=== PATIENT | male | born 1960 | race Caucasian/White ===

== ENCOUNTER 2018-06-07 07:04 | Outpatient (CLI) | payer OTHER ==
[~2018-06-07] VITALS: Ht 188 cm; Wt 138.2 kg
--- NOTE | ~2018-06-07 | OP ---
PATIENT NAME: LARRY GODFREY MEDICAL RECORD: [id number] :[birth year] LOCATION:D.CAT ADMISSION DATE: SURGEON: JUDY GUERRERO MD DATE OF OPERATION: 06/07/2018 PROCEDURES: 1. PTCA and stent of RCA. 2. PTCA and stent of LAD. 3. Left heart catheterization. 4. Selective coronary angiography. INDICATION: Angina and coronary artery disease. PROCEDURE IN DETAIL: After informed consent was obtained and after a detailed explanation of the risks, benefits as well as alternative therapies, the patient elected to proceed with angiogram and angioplasty. The right femoral area was prepped and draped in normal sterile fashion. Right femoral artery was cannulated via modified Seldinger technique with placement of 6-Latvian sheath. All catheters exchanged through this sheath. FINDINGS: Left ventriculogram was performed in standard 30-degree SANCHEZ view, reveals global hypokinesis throughout all segments. Overall ejection fraction 40%. SELECTIVE CORONARY ANGIOGRAPHY: 1. Left main is with no significant angiographic disease. 2. Left anterior descending has a long area of 80% to 95% stenosis in the mid vessel. 3. Left circumflex has mild irregularities, but no flow-limiting stenosis. 4. Right coronary has a 90% stenosis in the mid distal vessel. PTCA AND STENT OF THE RCA: The stent used was a 3.5 x 18-mm Alphonso. The result was 0% residual stenosis. PTCA AND STENT OF THE LAD: The stent used was a 2.25 x 38-mm [place]. The result was 0% residual stenosis. OVERALL IMPRESSION: Successful PTCA and stent of the LAD and RCA, both going from 90% to 95% initial stenosis to 0% residual. TRANSINT:[id number] Voice Confirmation ID: [id number] DOCUMENT ID: [id number] JUDY GUERRERO MD CC: [id number] DICTATION DATE: 06/07/18 1011 PIECER: 06/07/18 1055 REG [facility] [address] [place] [address]
--- NOTE | ~2018-06-07 | HEMODYNAMI ---
PATIENT:LARRY GODFREY MEDICAL RECORD: [id number] : 64 LOCATION:D.JUDAH ADMISSION DATE: 06/07/18 Generatedon:06/07/201810:04 Patient name: LARRY GODFREY Patient #: [id number] SSN: : 1960 Date of study: 06/07/2018 Page: Of Hemodynamic Procedure Report Patient Data Patient Demographics Procedure consent was obtained First Name: LARRY Gender: Male Last Name: EPIFANIO : 1960 Patient #: [id number] Age: 58 year(s) Race: Unknown Additional ID: [id number] Contact details Address: [address] [place] [address] State: [place] City: [place] Zip code: [address] Past Medical History Allergies Allergen Reaction Date Comments Reported Other allergy 06/07/2018 NAPROXEN, ROLAIDS Admission Admission Data Admission Date: 06/07/2018 Admission Time: 7:04 Lab Results Lab Result Date: 06/07/2018 Lab Result Time: 0:00 Biochemistry Name Units Result Min Max BUN mg/dl 29 --(----)-* 7 18 Creatinine mg/dl 1.4 --(----)*- 0.6 1.3 CBC Name Units Result Min Max Hemoglobin g/dl 14.7 --(-*--)-- 13.5 17.5 Procedure Procedure Types Cath Procedure Diagnostic Procedure LHC [facility] w/Coronaries Sedation Charges Moderate Sedation up to 15 minutes PCI Procedure Coronary Stent Coronary Stent Initial x2 Procedure Description Procedure Date Procedure Date: 06/07/2018 Procedure Start Time: 9:42 Procedure End Time: 10:04 Procedure Staff Name Function Dariusz Ortez MD Performing Physician Donnell Waite RT Scrub Yu Flores RN Nurse Mary Andrea RT Monitor Procedure Data Cath Procedure Fluoroscopy Diagnostic fluoroscopy Total fluoroscopy Time: 4.2 time: 4.2 min min Diagnostic fluoroscopy Total fluoroscopy dose: dose: 1176 mGy 1176 mGy Contrast Material Contrast Material Type Amount (ml) Isovue 300 138 Entry Location Entry Primary Successful Side Size Upsize Upsize Entry Closure Succes sful Closure Location (Fr) 1 (Fr) 2 (Fr) Remarks Device Remarks Femoral Right 5 Fr 7 Fr Exoseal artery Short Estimated blood loss: 10 ml Diagnostic catheters Device Type Used For End Catheter Placement MULTIPACK Pigtail 5 Fr Procedure catheter MULTIPACK JL 4.0 5Fr Procedure catheter MULTIPACK 3DRC 5Fr Procedure catheter Procedure Complications No complications Procedure Medications Medication Administration Route Dosage 0.9% NaCl I.V. 100 ml/hr Oxygen etCO2 Nasal cannula 2 l/min Lidocaine 2% added to field 20 Heparin Flush Bag added to field 2 bags (1000units/500ml NS) Versed I.V. 2 mg Fentanyl I.V. 50 mcg Heparin Bolus I.V. 4000 units Integrilin (Bolus I.V. 11.3 ml 2mg/ml) Plavix P.O. 600 mg Versed I.V. 2 mg Fentanyl I.V. 50 mcg Hemodynamics Rest HGB: 14.7 (g/dl) Heart Rate: 60 (bpm) Snapshots Pre Cath Intra NCS Post Cath Vital Signs Time Heart Resp SPO2 etCO2 NIBP (mmHg) Rhythm Pain Sedation Rate (ipm) (%) (mmHg) Status Level (bpm) 9:22:32 58 16 98 43.1 172/93(145) NSR 0 (11) 10(A) , No pain 9:27:08 59 14 99 32 177/100(148) NSR 0 (11) 10(A) , No pain 9:31:36 57 13 100 33.6 162/89(118) NSR 0 (11) 10(A) , No pain 9:36:11 58 13 98 20.8 144/74(120) NSR 0 (11) 10(A) , No pain 9:41:28 59 14 98 40.9 141/80(106) NSR 0 (11) 10(A) , No pain 9:45:52 59 13 97 38.7 144/82(102) NSR 0 (11) 10(A) , No pain 9:50:17 62 13 98 43.9 139/73(115) NSR 0 (11) 9(A) , No pain 9:54:49 62 12 97 40.2 143/66(122) NSR 0 (11) 9(A) , No pain 9:59:14 65 14 98 40.2 146/88(120) NSR 0 (11) 10(A) , No pain Medications Time Medication Route Dose Verified Delivered Reason Notes Effectiveness by by 9:17:39 0.9% NaCl I.V. 100 Dariusz Yu used for ml/hr Neelima Flores clerical production worker 9:17:47 Oxygen etCO2 2 Dariusz Yu used for Nasal l/min Neelima Flores procedure cannula RN 9:17:53 Lidocaine 2% added 20ml Dariusz Dariusz for local to vial Neelima Ortez MD anesthetic field 9:17:58 Heparin Flush added 2 Dariusz Dariusz used for Bag to bags Neelima Ortez MD procedure (1000units/500ml field NS) 9:40:59 Versed I.V. 2 mg Dariusz Yu for sedation Neelima Flores RN 9:41:05 Fentanyl I.V. 50 Dariusz Yu for sedation mcg Neelima Flores RN 9:46:48 Versed I.V. 2 mg Dariusz Yu for sedation Neelima Flores RN 9:46:52 Fentanyl I.V. 50 Dariusz Yu for sedation mcg Neelima Flores RN 9:47:58 Heparin Bolus I.V. 4000 Dariusz Yu for verifi ed units Neelima Flores anticoagulation with Dr. MIGUELITO Ortez 9:49:19 Integrilin I.V. 11.3 Dariusz Yu for wasted (Bolus 2mg/ml) ml Neelima Flores anticoagulation 8.7mL RN 9:49:40 Plavix P.O. 600 Dariusz Yu for sedation mg Neelima Flores field service technician Log Time Note 9:05:04 Signed procedure consent form obtained from patient. 9:05:05 Diagnostic Cath status Elective 9:05:07 Time tracking: Regular hours (M-F 7:00 - 5:00) 9:05:11 Plan of Care:Hemodynamics will remain stable., Cardiac rhythm will remain stable., Comfort level will be maintained., Respiratory function will remain adequate., Patient/ family verbilizes understanding of procedure., Procedure tolerated without complication., Recovers from procedure without complications.. 9:05:19 H&P Date Dictated: 05/07/2018 Within 30 days and on chart., H&P Addendum completed by physician on day of procedure. (MUST COMPLETE FOR ALL OUTPATIENTS). 9:05:41 Patient allergic to Other allergyNAPROXEN, ROLAIDS 9:12:57 Patient received from Pre/Post Procedure Room to CCL 1 Alert and oriented. Tansferred to table in Supine position. 9:13:00 Warm blankets applied, and kirill hugger turned on for patient comfort. 9:13:01 Correct patient and procedure confirmed by team. 9:17:39 0.9% NaCl 100 ml/hr I.V. was administered by Yu Flores RN; used for procedure; 9:17:47 Oxygen 2 l/min etCO2 Nasal cannula was administered by Yu Flores RN; used for procedure; 9:17:53 Lidocaine 2% 20ml vial added to field was administered by Dariusz Ortez MD; for local anesthetic; 9:17:58 Heparin Flush Bag (1000units/500ml NS) 2 bags added to field was administered by Dariusz Ortez MD; used for procedure; 9:21:07 Vital chart was started 9:25:36 Baseline sample Acquired. 9:25:37 Baseline sample Acquired. 9:25:43 Rhythm: sinus rhythm 9:25:45 Pre-procedure instructions explained to patient. 9:25:46 Pre-op teaching completed and patient verbalized understanding. 9:25:58 Family in waiting room. 9:26:02 Patient NPO since Midnight. 9:26:06 Is the patient allergic to Iodine/contrast media? No. 9:26:34 Is patient on blood thinner?No 9:26:36 Patient diabetic? Yes. 9:26:38 If diabetic: On Metformin? Yes 9:26:53 If on Metformin: Last Dose? 06/03/2019 9:26:57 ----Pre-sedation anethsthesia assessment.---- 9:27:00 Previous problem with sedation/anesthesia? No ? 9:27:02 Snore? Yes 9:27:04 Sleep apnea? No 9:27:05 Deviated septum? No 9:27:07 Opens mouth fully? Yes 9:27:08 Sticks out tongue? Yes 9:27:13 Airway obstruction? No ? 9:27:24 Dentures? Yes IN TIGHT 9:27:37 Pre procedure: right dorsailis pedis pulse 1+ Palpable, but thready & weak; easily obliterated 9:27:54 Patient pain scale 0/10 ?. 9:28:05 IV patent on arrival in left antecubital with 0.9% NaCl at [facility]. 9:28:29 Right groin area was prepped with chlora-prep and draped in sterile fashion 9:28:32 Alarms reviewed by R. N. 9:28:33 Sharps counted by scrub and verified by R.N. 9::35 Zero performed for pressure channel P1 9:28:39 Zero performed for pressure channel P1 9:32:02 Zero performed for pressure channel P1 9:35:17 Lab Result : BUN 29 mg/dl 9:35:17 Lab Result : Hemoglobin 14.7 g/dl 9:35:17 Lab Result : Creatinine 1.4 mg/dl 9:36:19 Baseline sample Acquired. 9:36:28 Full Disclosure recording started 9:36:41 Use device set Femoral Dx 9:36:42 ACIST Syringe (54056) opened to sterile field. 9:36:42 Bag Decanter (2002S) opened to sterile field. 9:36:43 Medline Cath Pack ([id number]) opened to sterile field. 9:36:43 DIAGNOSTIC WIRE .035 260cm J wire (109924) opened to sterile field. 9:36:45 ACIST Hand Control (15689) opened to sterile field. 9:36:45 ACIST Manifold (17689) opened to sterile field. 9:36:47 DIAGNOSTIC Multipack 5Fr catheter set (TA3080) opened to sterile field. 9:36:49 Tegaderm 4 x 4 (1626W) opened to sterile field. 9:36:51 SHEATH 5FR Albia (IIA105) opened to sterile field. 9:40:25 Physician arrived 9:40:25 --------ALL STOP TIME OUT------ 9:40:26 Final Timeout: patient, procedure, and site verified with staff and physician. All members of the team are in agreement. 9:40:28 Right groin site verified by team. 9:40:32 Physical assessment completed. ASA score P 2 - A patient with mild systemic disease as per Dariusz Ortez MD. 9:40:36 Sedation plan: IV Moderate Sedation Medication:Versed, Fentanyl 9:40:59 Versed 2 mg I.V. was administered by Yu Flores RN; for sedation; 9:41:05 Fentanyl 50 mcg I.V. was administered by Yu Flores RN; for sedation; 9:42:16 Procedure started. 9:42:26 Local anesthetic to right femoral artery with Lidocaine 2% by Dariusz Ortez MD.INITIAL ACCESS ONLY 9:42:39 A 5 Fr sheath was inserted into the Right Femoral artery 9:43:33 A MULTIPACK Pigtail 5 Fr catheter was advanced over the wire and used for Procedure. 9:43:37 LV gram done using SANCHEZ 9:44:24 EF : 40 % 9:44:32 Catheter removed. 9:44:44 A MULTIPACK JL 4.0 5Fr catheter was advanced over the wire and used for Procedure. 9:44:47 LCA angiography performed. 9:45:23 Catheter removed. 9:45:32 A MULTIPACK 3DRC 5Fr catheter was advanced over the wire and used for Procedure. 9:46:02 CHOICE PT Extra Support 182cm wire ([id number]) opened to sterile field. 9:46:02 SHEATH 6FR Albia (DSD902) opened to sterile field. 9:46:03 INFLATOR Merit BasixCompak (VD1370) opened to sterile field. 9:46:09 RCA angiography performed. 9:46:36 Catheter removed. 9:46:45 SHEATH 7FR Albia (UIZ863) opened to sterile field. 9:46:48 Versed 2 mg I.V. was administered by Yu Flores RN; for sedation; 9:46:52 Fentanyl 50 mcg I.V. was administered by Yu Flores RN; for sedation; 9:47:58 Heparin Bolus 4000 units I.V. was administered by Yu Flores RN; for anticoagulation; verified with Dr. Ortez 9:49:18 Sheath upsized to a 7 Fr Short. 9:49:19 Integrilin (Bolus 2mg/ml) 11.3 ml I.V. was administered by Yu Flores RN; for anticoagulation; wasted 8.7mL 9:49:23 Proceeding to intervention. 9:49:31 7 Fr AR2 guide catheter was inserted over the wire 9:49:38 choice pt ex wire advanced. 9:49:40 Plavix 600 mg P.O. was administered by Yu Flores RN; for sedation; 9:49:40 Wire advanced across lesion. 9:52:23 Wire removed. 9:52:28 Stent catheter was removed intact over wire. 9:52:42 CHOICE PT Floppy Straight 300cm guide wire ([id number]) opened to sterile field. 9:52:49 Wire advanced across lesion. 9:53:57 Place stent Inflation Number: 1 A KAROLINA RX 3.5 x 18 stent ([id number]) was prepped and advanced across the Dist RCA. The stent was deployed at 11 SANDIE for 0:11 (min:sec). 9:54:48 GUIDE 7FR AR 2.0 catheter ([id number]) opened to sterile field. 9:55:10 6 Fr XBLAD 4 guide catheter was inserted over the wire 9:55:22 GUIDE 6FR XBLAD 4.0 catheter ([id number]) opened to sterile field. 9:55:47 choice floppy wire advanced. 9:56:34 Wire advanced across lesion. 9:58:36 Place stent Inflation Number: 1 A KAROLINA RX 2.25 x 38 stent ([id number]) was prepped and advanced across the Mid LAD. The stent was deployed at 15 SANDIE for 0:14 (min:sec). 9:58:49 EXOSEAL 7Fr (EX700) opened to sterile field. 10:01:01 Stent catheter was removed intact over wire. 10:01:02 Wire removed. 10:01:03 Guide catheter removed. 10:01:13 Sheath removed intact; hemostasis achieved with Exoseal to the Right Femoral artery. 10:01:15 Procedure ended.(Physican Out) 10:02:27 Fluoroscopy time 04.20 minutes. 10:02:32 Fluoroscopy dose: 1176 mGy 10:02:32 Flurop Dose total: 1176 10:02:37 Contrast amount:Isovue 300 138ml. 10:02:40 Sharps counted by scrub and verified by R.N. 10:02:41 Insertion/operative site no bleeding no hematoma. 10:02:48 Post-procedure physical assessment completed. ASA score P 2 - A patient with mild systemic disease as per Dariusz Ortez MD. 10:02:51 Post procedure rhythm: unchanged. 10:03:01 Estimated blood loss: 10 ml 10:03:03 Post procedure instruction explained to patient.Patient verbalizes understanding. 10:03:33 Procedure type changed to Cath procedure, Diagnostic procedure, LHC, LHC w/Coronaries, Sedation Charges, Moderate Sedation up to 15 minutes, PCI procedure, Coronary Stent, Coronary Stent Initial x2 10:03:34 Procedure and supply charges have been captured, reviewed, submitted and are correct. 10:04:07 Procedure Complication : No complications 10:04:12 Vital chart was stopped 10:04:12 See physician's report for complete and final results. 10:04:14 Report given to Pre/Post Procedure Room. 10:04:18 Patient transfered to Pre/Post Procedure Room with Stretcher. 10:04:20 Procedure ended. 10:04:20 Full Disclosure recording stopped 10:04:23 End room use (Document Last) 10:04:28 ACC-PCI Only Patient was given prescriptions, or instructed by Dariusz Ortez MD to start/continue the following medications upon discharge: Plavix Intervention Summary Intervention Notes Time ActionType Lesion and Equipment Used Action# Pressure Duration Attributes 9:53:57 Place stent Dist RCA KAROLINA RX 3.5 x 1 11 00:11 18 stent ([id number]) 9:58:36 Place stent Mid LAD KAROLINA RX 2.25 x 1 15 00:14 38 stent ([id number]) Device Usage Item Name Manufacture Quantity Catalog Number Hospital Part Current M inimal Lot# / Charge Number Stock Stock Serial# Code ACIST Syringe Acist 1 76911 286356 576247 003807 2 0 (37416) Medical Systems Inc Bag Decanter Microtek 1 713471 29650 368056 5 () Medical Inc. Medline Cath Medline 1 [id number] 973993 07336 876176 5 Pack ([id number]) DIAGNOSTIC St Anant 1 781013 057413 305987 315863 3 0 WIRE .035 260cm J wire (559772) ACIST Hand Acist 1 62289 438325 539137 575520 5 Control Medical (13606) Systems Inc ACIST Manifold Acist 1 55586 051461 426931 439733 5 (97656) Medical Systems Inc DIAGNOSTIC Cardinal 1 RA1310 877101 88216 276782 3 0 Multipack 5Fr Health catheter set (UT7445) Tegaderm 4 x 4 3M 1 1626W 127270 746706 772114 5 (1626W) SHEATH 5FR Terumo 1 FJC719 465018 125504 398998 5 Albia (DQX745) MULTIPACK Cardinal 1 047058 5 Pigtail 5 Fr Health catheter MULTIPACK JL Cardinal 1 337265 5 4.0 5Fr Health catheter MULTIPACK 3DRC Cardinal 1 154414 5 5Fr catheter Health CHOICE PT Dunellen 1 [id number] 269715 161806 909574 5 Extra Support Scientific 182cm wire ([id number]) SHEATH 6FR Terumo 1 QCC075 589535 700674 577978 4 0 Albia (BAN421) INFLATOR Merit Merit 1 HA1346 051153 782302 387426 1 5 Kigo Medical (MR1293) SHEATH 7FR Terumo 1 EDN530 621865 982536 386149 5 Albia (DWZ703) CHOICE PT Dunellen 1 [id number] 196249 092683 599794 5 FFFavs Straight 300cm guide wire (72424714) KAROLINA RX 3.5 x Medtronic 1 [id number] 005384 1500025 543889 5 [id number] 18 stent ([id number]) GUIDE 7FR AR Medtronic 1 [id number] 921527 461009 501133 0 2.0 catheter (SE2MN07) GUIDE 6FR Cardinal 1 [id number] 032465 472457 662881 3 XBLAD 4.0 Health catheter ([id number]) KAROLINA RX 2.25 x Medtronic 1 [id number] 271550 3284889 183189 5 [id number] 38 stent ([id number]) EXOSEAL 7Fr Cardinal 1 EX700 490675 098119 466986 5 (EX700) Health Signature Audit [place] Stage Time Signature Unsigned Intra-Procedure 06/07/2018 Mary Andrea 10:04:48 AM RT(R) Signatures Monitor : Mary Andrea Signature : RT Date : Time : [facility] [address] [place] [address]
[2018-06-07] MEDS ORDERED: TOUJEO SOL300 UNIT/1 SC (07:50)
[2018-06-07] MEDS ORDERED: HUMULIN R100 U/ML SC (07:51)
[2018-06-07] MEDS ORDERED: FUROSEMIDE40 MG PO (07:51)
[2018-06-07] MEDS ORDERED: BAYER CHEWABLE81 MG PO (07:52)
[2018-06-07] MEDS ORDERED: ALDACTONE25 MG PO (07:52)
[2018-06-07] MEDS ORDERED: CELEXA20 MG PO (07:52)
[2018-06-07] MEDS ORDERED: TOPROL XL100 MG PO (07:53)
[2018-06-07] MEDS ORDERED: TRICOR145 MG PO (07:53)
[2018-06-07] MEDS ORDERED: LEXAPRO20 MG PO (07:54)
[2018-06-07] MEDS ORDERED: RANITIDINE HCL150 M1 PO (07:54)
[2018-06-07] MEDS ORDERED: GLUCOPHAGE850 MG PO (07:55)
[2018-06-07] MEDS ORDERED: CAPTOPRIL25 MG PO (07:55)
[2018-06-07] MEDS ORDERED: BUSPAR 15 MG TA15 MG PO (07:55)
[2018-06-07] MEDS ORDERED: CATAPRES0.1 MG PO (07:56)
[2018-06-07] MEDS ORDERED: BACLOFEN10 MG PO (07:56)
[2018-06-07 08:08] VITALS: BP 161/87; Ht 188 cm; Wt 138.2 kg
[2018-06-07 08:31] LABS: ANION GAP 13.5 mmol/L (8-16); BASOPHILS 0.4 % (0-2); CARBON DIOXIDE 29.6 mmol/L (21.0-32.0); CREATININE - SERUM 1.4 mg/dL (0.6-1.3); HEMATOCRIT 41.3 % (42.0-54.0); HEMOGLOBIN 14.7 g/dL (13.5-17.5); IMMATURE GRANULOCYTES 0.6 % (0-5); LYMPHOCYTES 31.5 % (15-50); MCH 30.4 pg (26.0-34.0); MCHC 35.6 g/dL (31.0-37.0); MCV 85.3 fL (80.0-100.0); MEAN PLATELET VOLUME 9.4 fL (7.4-10.4); MONOCYTES 9.8 % (2-11); NEUTROPHILS 51.7 % (40-80); PLATELET COUNT 226 10x3/uL (130-400); POTASSIUM - SERUM 4.1 mmol/L (3.5-5.1); RBC 4.84 10x6/uL (4.20-6.10); RDW 12.5 % (11.5-14.5)
[2018-06-07] MEDS ORDERED: PLAVIX75 MG PO (10:24)
== END 2018-06-07 14:00 | disposition home or self-care (01) ==
LOC: D.CATH 07:04
PROVIDERS: Internal Medicine Interventional Cardiology
DX: I25.119 Atherosclerotic heart disease of native coronary artery with unspecified angina pectoris (principal); Z01.812 Encounter for preprocedural laboratory examination